=== PATIENT | male | born 1940 | race Hispanic/Latino ===

== ENCOUNTER 2018-02-19 11:43 | Observation (INO) | payer MEDICARE ==
[~2018-02-19] VITALS: Ht 162.6 cm; Wt 75.3 kg
[2018-02-19] MEDS: SODIUM CHLORIDE 0.9% 1000ML 1,000 ML IV SCH ×2 (04:00→20:22)
[2018-02-19 12:09] LABS: BASOPHILS % 0.7 % (0.0-1.0); EOSINOPHILS % 0.7 % (0.0-6.0); HEMATOCRIT 43.8 % (38.2-49.6); HEMOGLOBIN 14.9 g/dL (14.0-18.0); LYMPHOCYTES # (AUTO) 1.9 (1.0-3.2); LYMPHOCYTES % 31.8 % (18.0-39.1); MEAN CORPUSCULAR VOLUME 96.9 fL (81-99); MONOCYTES # (AUTO) 0.5 (0.2-0.8); MONOCYTES % 8.3 % (4.4-11.3); NEUTROPHILS # (AUTO) 3.4 (2.1-6.9); NEUTROPHILS % 58.2 % (38.7-80.0); PLATELET COUNT 306 x10e3/uL (140-360); RED BLOOD COUNT 4.52 x10e6/uL (4.3-5.7); RED CELL DISTRIBUTION WIDTH 12.6 % (11.7-14.4)
[2018-02-19 12:12] LABS: CLARITY,URINE CLEAR (CLEAR); COLOR,URINE YELLOW (YELLOW); LEUKOCYTE ESTERASE ,URINE NEGATIVE (NEGATIVE); NITRITE,URINE NEGATIVE (NEGATIVE)
[2018-02-19 12:13] LABS: BILIRUBIN,URINE NEGATIVE (NEGATIVE); KETONES,URINE NEGATIVE (NEGATIVE); PROTEIN,URINE DIPSTICK NEGATIVE (NEGATIVE); URINE UROBILINOGEN 0.2 mg/dL (0.2 - 1)
[2018-02-19 12:29] LABS: TRANSITIONAL EPI CELLS,URINE RARE
[2018-02-19 12:31] LABS: ALBUMIN 4.2 g/dL (3.5-5.0); ANION GAP 15.8 mmol/L (8-16); CALCIUM 9.9 mg/dL (8.4-10.2); CREATININE, SERUM 1.73 mg/dL (0.72-1.25); POTASSIUM 3.8 mmol/L (3.5-5.1)
[2018-02-19] MEDS ORDERED: NIFEDIPINE 10 MG CAP PO ONE (13:45)
[2018-02-19] MEDS ORDERED: SODIUM CHLORIDE 0.9% 1000ML 1,000 ML IV STA ×2 (15:07→15:23)
[2018-02-19] MEDS ORDERED: ONDANSETRON HCL 4 MG ORAL DISINTEGRATING TAB SL PRN (15:30)
[2018-02-19] MEDS ORDERED: ONDANSETRON HCL INJ 2 MG/ML VIAL IV PRN (15:30)
[2018-02-19] MEDS ORDERED: MORPHINE SULFATE 2 MG/ML SYR IV PRN (15:30)
[2018-02-19] MEDS ORDERED: HYDRALAZINE HCL 20 MG/ML VIAL IV PRN (16:15)
[2018-02-19 17:16] VITALS: BP 181/90
[2018-02-19] MEDS: CARVEDILOL 3.125 MG TAB PO SCH (17:18)
[2018-02-19 17:24] VITALS: BP 181/90
[2018-02-19 20:00] VITALS: BP 178/101
--- NOTE | 2018-02-19 20:11 | Consultation ---
DATE OF CONSULTATION: February 19, 2018 REASON FOR CONSULTATION: Urinary retention. HISTORY: A 77-year-old male went to a routine physical exam, was found to have elevated BUN and creatinine with a lower GFR than normal and an ultrasound of the kidneys was done. He was then immediately referred to the emergency room stating that his kidneys were blocked. Upon arriving to the ER, a Abernathy catheter was placed in and the patient had 2 L of urine in his bladder. It was noted at the present time that indeed there is blood in the urine compatible with an overdistended bladder bleeding afterwards. BUN and creatinine are abnormal, but his sodium and potassium are normal. PAST MEDICAL HISTORY: High blood pressure. PAST SURGICAL HISTORY: Hernia. SOCIAL HISTORY: , has had 5 children. UROLOGICAL HISTORY: Negative for kidney stones or urinary tract infection. UROLOGICAL SYMPTOMATOLOGY: Nocturia times 3-4 at times. The patient states that he does not feel that he has not been emptying. He stated that he had a normal flow. He urinates normally. Only thing by history is that the patient drinks a 6-pack beer daily over the last 20 years. PHYSICAL EXAMINATION: Indwelling Abernathy catheter. RECOMMENDATIONS: CT scan of the abdomen and pelvis without contrast. This will give me an idea of the size of the prostate, as well as if there is any other abnormalities to the bones to suggest the patient may have prostate cancer. I will order that test. History pretty much is not impressive at all. The patient does not give any history of urgency or urge incontinence or frequency, incomplete voiding, slow flow, terminal dribbling. In fact, he states that other than nocturia times 3, he is fine. A PSA is not indicated at this point since the patient has a Abernathy and indwelling Abernathy catheter. If the patient has hydronephrosis, the patient will need to have an indwelling Abernathy catheter until the hydronephrosis is resolved. Currently, I have already talked to the family stating that the patient may need to have an operation of his prostate, but it will have to be after the hydronephrosis is resolved and the patient may need to go home with an indwelling Abernathy catheter. We will get a BMP in the morning since postobstructive diuresis can lead to hyponatremia. Job#: [id number] CQ
--- NOTE | 2018-02-19 20:14 | Diagnostic Imaging Report ---
EXAMINATION: CT of the abdomen and pelvis without contrast. TECHNIQUE: Helical CT images of the abdomen and pelvis were performed from the lung bases to the lesser trochanters. No intravenous contrast was given per renal stone protocol. Coronal and sagittal reformatted images were obtained. COMPARISON: None. CLINICAL HISTORY:Urinary retention, hematuria DISCUSSION: ABSENCE OF INTRAVENOUS CONTRAST DECREASES SENSITIVITY FOR DETECTION OF FOCAL LESIONS AND VASCULAR PATHOLOGY. ABDOMEN/PELVIS: LOWER THORAX: Unremarkable. HEPATOBILIARY:No focal hepatic lesions. No biliary ductal dilation. The gallbladder is normal. SPLEEN: No splenomegaly. PANCREAS: No focal masses or ductal dilatation. ADRENALS: No adrenal nodules. KIDNEYS/URETERS: Bilateral hydronephrosis. No solid mass. 1.7 cm exophytic cyst. No calculi. PELVIC ORGANS/BLADDER: Abernathy catheter within the bladder with air. Circumferential bladder wall thickening. Prostate hypertrophy. Evaluation for underlying mass is limited. Colonic diverticulosis. PERITONEUM/RETROPERITONEUM: No free air or fluid. LYMPH NODES: No intra-abdominal,retroperitoneal, pelvic or inguinal lymphadenopathy. VESSELS: Limited evaluation. GI TRACT: No distention wall thickening. Colonic diverticulosis predominantly involving the sigmoid colon and appendix normal. BONES AND SOFT TISSUES: No bony destructive lesions. No soft tissue abnormalities. IMPRESSION: Bilateral hydronephrosis and circumferential bladder wall thickening secondary to chronic outlet obstruction likely due to prostate hypertrophy. Abernathy catheter present with air in the bladder. Colonic diverticulosis. Signed by: Dr. Julien Kang M.D. on 02/19/2018 8:10 PM
[2018-02-19 22:30] LABS: ALBUMIN 3.3 g/dL (3.5-5.0); ALBUMIN/GLOBULIN RATIO 0.9 (0.8-2.0); ANION GAP 12.3 mmol/L (8-16); CALCIUM 8.8 mg/dL (8.4-10.2); CREATININE, SERUM 1.39 mg/dL (0.72-1.25); POTASSIUM 3.3 mmol/L (3.5-5.1)
[2018-02-19 23:14] VITALS: BP 178/101
[2018-02-19 23:15] VITALS: BP 137/83
[2018-02-20 00:43] VITALS: BP 138/84
[2018-02-20 04:50] VITALS: BP 117/78
[2018-02-20 06:51] LABS: BASOPHILS # (AUTO) 0.1 (0.0-0.1); BASOPHILS % 1.1 % (0.0-1.0); EOSINOPHILS # (AUTO) 0.1 (0.0-0.4); EOSINOPHILS % 1.2 % (0.0-6.0); HEMATOCRIT 39.4 % (38.2-49.6); HEMOGLOBIN 13.7 g/dL (14.0-18.0); LYMPHOCYTES # (AUTO) 1.4 (1.0-3.2); LYMPHOCYTES % 21.9 % (18.0-39.1); MEAN CORPUSCULAR HEMOGLOBIN 33.6 pg (28-32); MEAN CORPUSCULAR HGB CONC 34.8 g/dL (31-35); MEAN CORPUSCULAR VOLUME 96.6 fL (81-99); MONOCYTES # (AUTO) 0.6 (0.2-0.8); NEUTROPHILS # (AUTO) 4.3 (2.1-6.9); NEUTROPHILS % 66.6 % (38.7-80.0); PLATELET COUNT 287 x10e3/uL (140-360); RED BLOOD COUNT 4.08 x10e6/uL (4.3-5.7); RED CELL DISTRIBUTION WIDTH 12.7 % (11.7-14.4)
[2018-02-20 06:58] LABS: ANION GAP 12.6 mmol/L (8-16); CALCIUM 8.5 mg/dL (8.4-10.2); CREATININE, SERUM 1.43 mg/dL (0.72-1.25); POTASSIUM 3.6 mmol/L (3.5-5.1)
[2018-02-20 07:15] LABS: MAGNESIUM 1.8 MG/DL (1.3-2.1)
[2018-02-20] MEDS: SODIUM CHLORIDE 0.9% 1000ML 1,000 ML IV SCH ×2 (07:21→17:00)
[2018-02-20 07:44] LABS: THYROID STIMULATING HORMONE 5.952 uIU/mL (0.350-4.940)
[2018-02-20 08:22] VITALS: BP 150/91
[2018-02-20] MEDS: CARVEDILOL 3.125 MG TAB PO SCH ×2 (09:24→17:21)
[2018-02-20 12:15] VITALS: BP 153/97
--- NOTE | 2018-02-20 14:30 | Discharge Summary ---
PRIMARY CARE DOCTOR: Alexandria Tate M.D., at [facility]. FINAL DIAGNOSIS: Bilateral hydronephrosis with severe urinary retention. SECONDARY DIAGNOSES 1. Hypertension. 2. Hypothyroidism. OPERATIONS OFFICER: Dr. Wilder Shields, urology. PROCEDURES/STUDIES PERFORMED: CT of the abdomen and pelvis which showed bilateral hydronephrosis. HISTORY: Per [facility] HOSPITAL COURSE: The patient was admitted for urinary retention. After the patient voided, a Abernathy catheter was placed, and 2 L of urine came out. Etiology likely due to prostate hypertrophy. The patient's creatinine remains around 1.4 to 1.7 with a GFR hovering between 40 and 50. The patient does take LAVONNE inhibitor at home. Potentially, this is stage-3 chronic kidney disease due to hypertension or potentially his kidney function may improve after his hydronephrosis gets better over the next 2 weeks. The patient will go home with a Abernathy catheter. We will arrange for him to see a [facility] urologist. The patient understands he needs to keep his Abernathy catheter until he is seen by a [facility] urologist. Hopefully, at that time, his hydronephrosis has resolved and likely he can proceed to TURP. The patient did not have any hyponatremia. Therefore, the patient did not have any postdiuresis syndrome. The patient was seen and examined today. CONDITION AT DISCHARGE: Stable. DISCHARGE MEDICATIONS: Please see medication reconciliation form. ANN PANDYA M.D. Job#: [id number] cc:ALEXANDRIA TATE M.D.
[2018-02-20 16:46] VITALS: BP 141/82
[2018-02-20 20:08] VITALS: BP 156/89
--- NOTE | 2018-02-20 22:41 | Progress Note ---
DATE: February 20, 2018 Today, the patient is afebrile. Urine is grossly clear although he has a little bit of blood at the bottom of the tubing of his Abernathy. Has had excellent output. He is afebrile. I had a long discussion with him and his daughter and son regarding his prostate problems. He has a very large prostate with bilateral severe hydroureter and hydronephrosis, although his BUN and creatinine are not that bad. He also does not have any anemia. Postobstructive diuresis has occurred, but does not have a postobstructive diuretic syndrome with hyponatremia and hypokalemia. Currently, the patient is stable. He has no pain. He has tolerated the Abernathy catheter well. RECOMMENDATIONS: Discharge from the hospital in the morning if his sodium and potassium are normal. Leg bag and overnight bag for the patient to go home. He is a [facility] patient. Therefore, he will be going back to his primary care physician, and will refer him to a [facility] urologist. I have discussed with the patient the possibility that he may have urge incontinence after surgery since his bladder on CT scan looks very thickened and irregular, probably full of small diverticulum cellules and saccules. I have discussed with him that he probably will have a period of recuperation, but that his bladder function may not be normal again. The time of surgery depends on the resolution of the hydronephrosis. I am more concerned about the ureter that is extremely dilated and whether the ureter will ever recover or not. Also, discussed with the patient the possibility of either an open procedure with embolization of the prostate first, and then an open prostatectomy versus a 2-staged transurethral resection of the prostate. That will depend on the surgeon's choice, as well as the patient's choice. He can discuss that with his urologist at [facility]. Job#: [id number] [place]
[2018-02-21] VITALS: BP 125/78
[2018-02-21] MEDS: SODIUM CHLORIDE 0.9% 1000ML 1,000 ML IV SCH ×2 (00:38→08:54)
[2018-02-21 04:00] VITALS: BP 143/78
[2018-02-21 06:58] LABS: BASOPHILS # (AUTO) 0.1 (0.0-0.1); EOSINOPHILS # (AUTO) 0.2 (0.0-0.4); EOSINOPHILS % 2.4 % (0.0-6.0); HEMATOCRIT 40.2 % (38.2-49.6); HEMOGLOBIN 13.6 g/dL (14.0-18.0); MEAN CORPUSCULAR HEMOGLOBIN 33.3 pg (28-32); MEAN CORPUSCULAR HGB CONC 33.8 g/dL (31-35); MEAN CORPUSCULAR VOLUME 98.3 fL (81-99); MONOCYTES # (AUTO) 0.6 (0.2-0.8); MONOCYTES % 8.1 % (4.4-11.3); NEUTROPHILS # (AUTO) 4.2 (2.1-6.9); NEUTROPHILS % 60.2 % (38.7-80.0); PLATELET COUNT 292 x10e3/uL (140-360); RED BLOOD COUNT 4.09 x10e6/uL (4.3-5.7); RED CELL DISTRIBUTION WIDTH 12.8 % (11.7-14.4)
[2018-02-21 07:30] VITALS: BP 143/78
[2018-02-21 07:33] LABS: ALBUMIN 3.1 g/dL (3.5-5.0); ALBUMIN/GLOBULIN RATIO 0.9 (0.8-2.0); ANION GAP 12.9 mmol/L (8-16); CALCIUM 8.4 mg/dL (8.4-10.2); CREATININE, SERUM 1.34 mg/dL (0.72-1.25); POTASSIUM 3.9 mmol/L (3.5-5.1)
[2018-02-21 08:15] VITALS: BP 150/91
[2018-02-21] MEDS: CARVEDILOL 3.125 MG TAB PO SCH (08:54)
[2018-02-21] MEDS ORDERED: LISINOPRIL10 MG PO (08:55)
[2018-02-21] MEDS ORDERED: LEVOTHYROXINE50 MCG PO (08:55)
[2018-02-21 11:52] VITALS: BP 152/72
== END 2018-02-21 13:30 | disposition home or self-care (01) ==
LOC: ER 11:43 → IMCU 16:38
PROVIDERS: ADMIT Internal Medicine; ATTEND Internal Medicine
DX: N40.1 Benign prostatic hyperplasia with lower urinary tract symptoms (principal); R35.0 Frequency of micturition; R33.8 Other retention of urine; N17.9 Acute kidney failure, unspecified; N13.30 Unspecified hydronephrosis; I10 Essential (primary) hypertension; E03.9 Hypothyroidism, unspecified
CPT/HCPCS: 36415 ×3; 51700; 74176; 80048; 80053 ×2; 81001; 83735; 84443; 85025 ×3; 99285; G0378 ×3; J0360; J7030 ×3